=== PATIENT | female | born 1980 | race American Indian/Alaskan Native ===

== ENCOUNTER 2017-03-22 14:56 | Emergency (ER) | payer MEDICAID ==
[2017-03-22] MEDS ORDERED: TESSALON PERLES PO ONE (18:34)
[2017-03-22] MEDS ORDERED: NACL 0.9% 1000 ML 1,000 ML IV ONE (18:34)
[2017-03-22] MEDS ORDERED: PROVENTIL IH ONE (18:52)
[2017-03-22] MEDS ORDERED: ATROVENT IH ONE (18:52)
--- NOTE | 2017-03-22 18:52 | Emergency Department Report ---
Blank Doc - Documentation Documentation: Patient is a 37-year-old -Citizen Of [place] female with a past medical history asthma who states that she has had increased asthma symptoms for the past week. Patient has a cough is productive she states she's been using her inhaler with no relief. Brief physical exam patient does have a bronchitic cough with a very mild wheeze patient will receive a nebulized treatment Solu-Medrol and chest x-ray to rule out pneumonia
--- NOTE | 2017-03-22 19:12 | XRay Report ---
FINAL REPORT PROCEDURE: Chest. TECHNIQUE: PA and lateral views. HISTORY: Cough. COMPARISON: No prior studies are available for comparison. FINDINGS: The heart and mediastinum appear normal. The lungs are clear and well expanded. There are no pleural effusions. The soft tissues and regional skeleton are unremarkable. IMPRESSION: Normal study.
[2017-03-22 19:46] LABS: Basophils # (Auto) 0.1 K/mm3 (0.0-0.1); Basophils % (Auto) 1.6 % (0.0-1.8); Eosinophils % (Auto) 0.2 % (0.0-4.3); Hematocrit 39.4 % (30.3-42.9); Lymphocytes # (Auto) 0.4 K/mm3 (1.2-5.4); Mean Corpuscular HGB Conc 33 % (30-34); Mean Corpuscular Hemoglobin 30 pg (28-32); Mean Corpuscular Volume 92 fl (79-97); Monocytes # (Auto) 0.6 K/mm3 (0.0-0.8); Monocytes % (Auto) 12.4 % (0.0-7.3); Platelet Count 175 K/mm3 (140-440); Red Blood Count 4.28 M/mm3 (3.65-5.03)
[2017-03-22 19:59] LABS: BUN/Creatinine Ratio 9; Blood Urea Nitrogen 7 mg/dL (7-17); Calcium 8.6 mg/dL (8.4-10.2); Hemolysis Index 8
--- NOTE | 2017-03-22 21:46 | Emergency Department Report ---
Minor Respiratory - HPI Chief Complaint: Adult Asthma Stated Complaint: FLU LIKE SYMPTOMS Time Seen by Provider: 03/22/17 18:18 Duration: 2 Days Minor Respiratory: Yes Able to Tolerate Fluids, Yes Cough, Yes Fever, No Rhinorrhea, No Sore Throat, No Ear Pain, No Sick Contacts, No Hemoptysis, No Chest Pain, No Shortness of Breath Other History: 37-year-old female with a history of asthma who presents to ED complaining of cough and onset of fever for the past couple of days. Patient states cough has been intermittent, nonproductive. Patient states usually when she gets a bit sleep usually flares of asthma. Patient states she is drinking fluids okay and able within tolerate food appropriately. Patient states she has albuterol inhaler at home which she uses for rescue. She denies nausea/vomiting /shortness of breath/chest pain/dizziness or headaches ED Review of Systems ROS: Stated complaint: FLU LIKE SYMPTOMS Other details as noted in HPI Constitutional: fever. denies: chills Eyes: denies: eye pain, eye discharge, vision change ENT: denies: ear pain, throat pain Respiratory: cough. denies: shortness of breath, wheezing Cardiovascular: denies: chest pain, palpitations Endocrine: no symptoms reported Gastrointestinal: denies: abdominal pain, nausea, vomiting, diarrhea Genitourinary: denies: urgency, dysuria, frequency, discharge Musculoskeletal: denies: back pain, joint swelling, arthralgia Skin: denies: rash, lesions, pruritus Neurological: denies: headache, weakness, numbness, paresthesias, confusion Psychiatric: denies: anxiety, depression Hematological/Lymphatic: denies: easy bleeding, easy bruising ED Past Medical Hx - Past Medical History Hx Arthritis: Yes Hx Asthma: Yes Additional medical history: hyperhydrosis, genital herpes - Surgical History Additional Surgical History: corrected sweat glands - Social History Smoking Status: Current Every Day Smoker Substance Use Type: Alcohol, Marijuana - Medications Home Medications: Home Medications Medication Instructions Recorded Confirmed Last Taken Type Azithromycin [Zithromax Z-LAURA] 250 mg PO DAILY #6 tablet 07/19/13 Unknown Rx Guaifenesin/Codeine Phosphate 5 ml PO Q6H PRN #8 oz 07/19/13 Unknown Rx [Cheratussin AC Syrup] Amoxicillin [Trimox CAP] 1,000 mg PO Q8H #60 capsule 11/16/13 Unknown Rx Promethazine/Phenylephrine(Nf) 5 ml PO Q6H PRN #120 udc 11/16/13 Unknown Rx [Promethazine Vc 6.25/5 mg (Nf)] ALBUTEROL NEB's [Proventil 0.083% 2.5 mg IH DAILY PRN #1 pack 03/22/17 Unknown Rx NEBS] Albuterol Sulfate [Ventolin HFA] 2 puff IH Q4H PRN #1 hfa.aer.ad 03/22/17 Unknown Rx Compressor, For Nebulizer [Ebase 1 each MC DAILY #1 device 03/22/17 Unknown Rx Controller] Ibuprofen [Motrin 800 MG tab] 800 mg PO TID PRN #18 tablet 03/22/17 Unknown Rx Oseltamivir [Tamiflu] 75 mg PO BID #14 cap 03/22/17 Unknown Rx predniSONE [Deltasone] 3 tab PO QDAY #15 tab 03/22/17 Unknown Rx Minor Respiratory Exam - Exam General: Vital signs noted. No distress. Alert and acting appropriately. HEENT: Yes Moist Mucous Membranes, No Pharyngeal Erythema, No Pharyngeal Exudates, No Rhinorrhea, No Conjuctival Injection, No Frontal Tenderness, No Maxillary Tenderness Ear: Neither TM Bulge, Neither TM Erythema, Neither EAC Pain, Neither EAC Discharge Neck: Yes Supple, No Adenopathy Lungs: Yes Good Air Exchange, No Wheezes, No Ronchi, No Stridor, No Cough, No Labored Respirations, No Retractions, No Use of Accessory Muscles, No Other Abnormal Lung Sounds Heart: Yes Regular, No Murmur Abdomen: Yes Normal Bowel Sounds, No Tenderness, No Peritoneal Signs Skin: No Rash, No Edema Neurologic: Alert and oriented, no deficits. Musculoskeletal: Unremarkable. ED Course Vital Signs 03/22/17 15:28 Temperature 101.1 F H Pulse Rate 108 H Respiratory 16 Rate Blood Pressure 101/58 O2 Sat by Pulse 98 Oximetry ED Medical Decision Making - Lab Data Result diagrams: 03/22/17 19:30 03/22/17 19:30 - Radiology Data Radiology results: report reviewed, image reviewed FINAL REPORT PROCEDURE: Chest. TECHNIQUE: PA and lateral views. HISTORY: Cough. COMPARISON: No prior studies are available for comparison. FINDINGS: The heart and mediastinum appear normal. The lungs are clear and well expanded. There are no pleural effusions. The soft tissues and regional skeleton are unremarkable. IMPRESSION: Normal study. Transcribed By: MRM Dictated By: ORVILLE SCHULTZ MD Electronically Authenticated By: ORVILLE SCHULTZ MD Signed Date/Time: 03/22/17 6481 - Medical Decision Making 7-year-old male presents with flulike symptoms. Fever resolved no fever during the ED stay. Discussed with mother symptomatic relief with [id number] medications. Discussed continue Tylenol and Motrin as needed for fever and pain. Discussed increase fluids and diet intake. Discussed rest much needed. Discussed daily vitamin C for immune booster. Discussed follow-up with trash collector in 3-5 days. Patient's mother verbally states she understands and will comply the following instructions and follow-up Vital signs stable. Patient is in no acute distress Critical care attestation.: If time is entered above; I have spent that time in minutes in the direct care of this critically ill patient, excluding procedure time. ED Disposition Clinical Impression: Viral syndrome Asthma exacerbation Qualifiers: Asthma severity: mild Asthma persistence: intermittent Qualified Code(s): J45.21 - Mild intermittent asthma with (acute) exacerbation Disposition: DC-01 TO HOME OR SELFCARE Is pt being admited?: No Does the pt Need Aspirin: No Condition: Stable Instructions: Asthma (ED), Upper Respiratory Infection (ED), Viral Syndrome (ED ), Cold Symptoms (ED) Additional Instructions: Make sure to follow up with the primary care physician as discussed. Take all your medications as you've been prescribed. If you have any worsening symptoms or develop new symptoms please return to ED immediately. Prescriptions: ALBUTEROL NEB's [Proventil 0.083% NEBS] 2.5 mg IH DAILY PRN #1 pack PRN Reason: Wheezing Albuterol Sulfate [Ventolin HFA] 2 puff IH Q4H PRN #1 hfa.aer.ad PRN Reason: Shortness Of Breath Compressor, For Nebulizer [Ebase Controller] 1 each MC DAILY #1 device Ibuprofen [Motrin 800 MG tab] 800 mg PO TID PRN #18 tablet PRN Reason: Pain Oseltamivir [Tamiflu] 75 mg PO BID #14 cap predniSONE [Deltasone] 3 tab PO QDAY #15 tab Referrals: PRIMARY CAREMD [Primary Care Provider] - 3-5 Days CHANTEL ARCHULETA MD [Referring] - 3-5 Days [facility] [Outside] - 3-5 Days [facility] [Outside] - 3-5 Days [facility] [Outside] - 3-5 Days Forms: Work/School Release Form(ED) Time of Disposition: 21:46
[2017-03-22] MEDS ORDERED: TYLENOL PO ONE (22:09)
[2017-03-23 05:24] VITALS: BP 112/58
== END 2017-03-22 23:35 | disposition home or self-care (01) ==
LOC: ED 14:56
DX: J45.901 Unspecified asthma with (acute) exacerbation (principal); B34.9 Viral infection, unspecified; M19.90 Unspecified osteoarthritis, unspecified site; F17.200 Nicotine dependence, unspecified, uncomplicated; F12.10 Cannabis abuse, uncomplicated
CPT/HCPCS: 36415; 71046; 80048; 85025; 96361; 96374; 99284; J2930; J7030

== ENCOUNTER 2018-07-29 13:57 | Emergency (ER) | payer MEDICAID ==
[2018-07-29 14:20] VITALS: BP 139/70
--- NOTE | 2018-07-29 14:24 | Emergency Department Report ---
ED ENT HPI - General Chief complaint: Dental/Oral Stated complaint: TOOTHACHE Time Seen by Provider: 07/29/18 14:18 Source: patient Mode of arrival: Ambulatory Limitations: No Limitations - History of Present Illness MD complaint: tooth pain -: Sudden Location: tooth # Severity: mild, moderate Quality: aching, dull Consistency: constant Improves with: none Worsens with: eating (and palpation) Context- Dental: history of dental caries Associated Symptoms: gum swelling, toothache. denies: cough, pain with swallowing, sore throat, tinnitus, discharge from ear, rhinorrhea - Related Data Previous Rx's Medication Instructions Recorded Last Taken Type Azithromycin [Zithromax Z-LAURA] 250 mg PO DAILY #6 tablet 07/19/13 Unknown Rx Guaifenesin/Codeine Phosphate 5 ml PO Q6H PRN #8 oz 07/19/13 Unknown Rx [Cheratussin AC Syrup] Amoxicillin [Trimox CAP] 1,000 mg PO Q8H #60 capsule 11/16/13 Unknown Rx Promethazine/Phenylephrine(Nf) 5 ml PO Q6H PRN #120 udc 11/16/13 Unknown Rx [Promethazine Vc 6.25/5 mg (Nf)] ALBUTEROL NEB's [Proventil 0.083% 2.5 mg IH DAILY PRN #1 pack 03/22/17 Unknown Rx NEBS] Albuterol Sulfate [Ventolin HFA] 2 puff IH Q4H PRN #1 hfa.aer.ad 03/22/17 Unknown Rx Compressor, For Nebulizer [Ebase 1 each MC DAILY #1 device 03/22/17 Unknown Rx Controller] Ibuprofen [Motrin 800 MG tab] 800 mg PO TID PRN #18 tablet 03/22/17 Unknown Rx Oseltamivir [Tamiflu] 75 mg PO BID #14 cap 03/22/17 Unknown Rx predniSONE [Deltasone] 3 tab PO QDAY #15 tab 03/22/17 Unknown Rx Amoxicillin [Amoxicillin TAB] 875 mg PO BID #20 tablet 07/29/18 Unknown Rx Chlorhexidine Mouthwash [Peridex] 15 ml MM BID #473 bottle 07/29/18 Unknown Rx Lidocaine Viscous 2% 15 ml MM Q4H #240 udc 07/29/18 Unknown Rx traMADol [Ultram] 50 mg PO Q6HR PRN #14 tablet 07/29/18 Unknown Rx Allergies Allergy/AdvReac Type Severity Reaction Status Date / Time No Known Allergies Allergy Verified 07/29/18 13:58 ED Dental HPI - General Chief complaint: Dental/Oral Stated complaint: TOOTHACHE Time Seen by Provider: 07/29/18 14:18 Source: patient Mode of arrival: Ambulatory Limitations: No Limitations - Related Data Previous Rx's Medication Instructions Recorded Last Taken Type Azithromycin [Zithromax Z-LAURA] 250 mg PO DAILY #6 tablet 07/19/13 Unknown Rx Guaifenesin/Codeine Phosphate 5 ml PO Q6H PRN #8 oz 07/19/13 Unknown Rx [Cheratussin AC Syrup] Amoxicillin [Trimox CAP] 1,000 mg PO Q8H #60 capsule 11/16/13 Unknown Rx Promethazine/Phenylephrine(Nf) 5 ml PO Q6H PRN #120 udc 11/16/13 Unknown Rx [Promethazine Vc 6.25/5 mg (Nf)] ALBUTEROL NEB's [Proventil 0.083% 2.5 mg IH DAILY PRN #1 pack 03/22/17 Unknown Rx NEBS] Albuterol Sulfate [Ventolin HFA] 2 puff IH Q4H PRN #1 hfa.aer.ad 03/22/17 Unknown Rx Compressor, For Nebulizer [Ebase 1 each MC DAILY #1 device 03/22/17 Unknown Rx Controller] Ibuprofen [Motrin 800 MG tab] 800 mg PO TID PRN #18 tablet 03/22/17 Unknown Rx Oseltamivir [Tamiflu] 75 mg PO BID #14 cap 03/22/17 Unknown Rx predniSONE [Deltasone] 3 tab PO QDAY #15 tab 03/22/17 Unknown Rx Amoxicillin [Amoxicillin TAB] 875 mg PO BID #20 tablet 07/29/18 Unknown Rx Chlorhexidine Mouthwash [Peridex] 15 ml MM BID #473 bottle 07/29/18 Unknown Rx Lidocaine Viscous 2% 15 ml MM Q4H #240 udc 07/29/18 Unknown Rx traMADol [Ultram] 50 mg PO Q6HR PRN #14 tablet 07/29/18 Unknown Rx Allergies Allergy/AdvReac Type Severity Reaction Status Date / Time No Known Allergies Allergy Verified 07/29/18 13:58 ED Review of Systems ROS: Stated complaint: TOOTHACHE Other details as noted in HPI Constitutional: denies: chills, fever Eyes: denies: eye pain, eye discharge, vision change ENT: dental pain. denies: ear pain, throat pain Respiratory: denies: cough, shortness of breath, wheezing Cardiovascular: denies: chest pain, palpitations Endocrine: no symptoms reported Gastrointestinal: denies: abdominal pain, nausea, diarrhea Genitourinary: denies: urgency, dysuria, discharge Musculoskeletal: denies: back pain, joint swelling, arthralgia Skin: denies: rash, lesions Neurological: denies: headache, weakness, paresthesias Psychiatric: denies: anxiety, depression Hematological/Lymphatic: denies: easy bleeding, easy bruising ED Past Medical Hx - Past Medical History Hx Arthritis: Yes Hx Asthma: Yes Additional medical history: hyperhydrosis, genital herpes - Surgical History Additional Surgical History: corrected sweat glands - Social History Smoking Status: Current Every Day Smoker Substance Use Type: Alcohol - Medications Home Medications: Home Medications Medication Instructions Recorded Confirmed Last Taken Type Azithromycin [Zithromax Z-LAURA] 250 mg PO DAILY #6 tablet 07/19/13 Unknown Rx Guaifenesin/Codeine Phosphate 5 ml PO Q6H PRN #8 oz 07/19/13 Unknown Rx [Cheratussin AC Syrup] Amoxicillin [Trimox CAP] 1,000 mg PO Q8H #60 capsule 11/16/13 Unknown Rx Promethazine/Phenylephrine(Nf) 5 ml PO Q6H PRN #120 udc 11/16/13 Unknown Rx [Promethazine Vc 6.25/5 mg (Nf)] ALBUTEROL NEB's [Proventil 0.083% 2.5 mg IH DAILY PRN #1 pack 03/22/17 Unknown Rx NEBS] Albuterol Sulfate [Ventolin HFA] 2 puff IH Q4H PRN #1 hfa.aer.ad 03/22/17 Unknown Rx Compressor, For Nebulizer [Ebase 1 each MC DAILY #1 device 03/22/17 Unknown Rx Controller] Ibuprofen [Motrin 800 MG tab] 800 mg PO TID PRN #18 tablet 03/22/17 Unknown Rx Oseltamivir [Tamiflu] 75 mg PO BID #14 cap 03/22/17 Unknown Rx predniSONE [Deltasone] 3 tab PO QDAY #15 tab 02/06/18 Unknown Rx Amoxicillin [Amoxicillin TAB] 875 mg PO BID #20 tablet 07/29/18 Unknown Rx Chlorhexidine Mouthwash [Peridex] 15 ml MM BID #473 bottle 07/29/18 Unknown Rx Lidocaine Viscous 2% 15 ml MM Q4H #240 udc 07/29/18 Unknown Rx traMADol [Ultram] 50 mg PO Q6HR PRN #14 tablet 07/29/18 Unknown Rx ED Physical Exam - General Limitations: No Limitations General appearance: alert, in no apparent distress - Head Head exam: Present: atraumatic, normocephalic - Eye Eye exam: Present: normal appearance, PERRL, EOMI Pupils: Present: normal accommodation - ENT ENT exam: Present: mucous membranes moist, other (dental tenderness at tooth #18 and redness noted with few dental caries. airway patent) - Neck Neck exam: Present: normal inspection, full ROM. Absent: lymphadenopathy, thyromegaly - Respiratory Respiratory exam: Present: normal lung sounds bilaterally. Absent: respiratory distress, wheezes, rales, rhonchi - Cardiovascular Cardiovascular Exam: Present: regular rate, normal rhythm. Absent: systolic murmur, diastolic murmur, rubs, gallop - GI/Abdominal GI/Abdominal exam: Present: soft, normal bowel sounds - Extremities Exam Extremities exam: Present: normal inspection - Back Exam Back exam: Present: normal inspection - Neurological Exam Neurological exam: Present: alert, oriented X3 - Psychiatric Psychiatric exam: Present: normal affect, normal mood - Skin Skin exam: Present: warm, dry, intact, normal color. Absent: rash ED Course Vital Signs 07/29/18 14:18 Temperature 98.6 F Pulse Rate 72 Respiratory 18 Rate Blood Pressure 139/70 O2 Sat by Pulse 99 Oximetry Critical care attestation.: If time is entered above; I have spent that time in minutes in the direct care of this critically ill patient, excluding procedure time. ED Disposition Clinical Impression: Dentalgia Disposition: DC-01 TO HOME OR SELFCARE Is pt being admited?: No Does the pt Need Aspirin: No Condition: Stable Prescriptions: Amoxicillin [Amoxicillin TAB] 875 mg PO BID #20 tablet Lidocaine Viscous 2% 15 ml MM Q4H #240 udc Chlorhexidine Mouthwash [Peridex] 15 ml MM BID #473 bottle traMADol [Ultram] 50 mg PO Q6HR PRN #14 tablet PRN Reason: Pain Referrals: [facility] [Outside] - 3-5 Days
== END 2018-07-29 14:48 | disposition home or self-care (01) ==
LOC: ED 13:57
DX: K08.89 Other specified disorders of teeth and supporting structures (principal); M19.90 Unspecified osteoarthritis, unspecified site; J45.909 Unspecified asthma, uncomplicated; F17.200 Nicotine dependence, unspecified, uncomplicated
CPT/HCPCS: 99282

== ENCOUNTER 2018-07-31 22:12 | Emergency (ER) | payer MEDICAID ==
[2018-07-31] MEDS ORDERED: DUONEB *Not for PRN Use IH ONE (22:22)
[2018-07-31 23:52] VITALS: BP 148/84
[2018-08-01 00:29] LABS: Basophils % (Auto) 0.5 % (0.0-1.8); Eosinophils % (Auto) 0.4 % (0.0-4.3); Hematocrit 37.4 % (30.3-42.9); Hemoglobin 12.9 gm/dl (10.1-14.3); Lymphocytes % (Auto) 10.5 % (13.4-35.0); Mean Corpuscular HGB Conc 35 % (30-34); Mean Corpuscular Volume 89 fl (79-97); Monocytes # (Auto) 0.5 K/mm3 (0.0-0.8); Monocytes % (Auto) 5.8 % (0.0-7.3); Platelet Count 232 K/mm3 (140-440); Red Blood Count 4.18 M/mm3 (3.65-5.03); Red Cell Distribution Width 13.8 % (13.2-15.2)
[2018-08-01 00:52] LABS: Alanine Aminotransferase 15 units/L (7-56); Albumin 3.8 g/dL (3.9-5); BUN/Creatinine Ratio 14; Blood Urea Nitrogen 14 mg/dL (7-17); Hemolysis Index 25
[2018-08-01 01:28] LABS: HCG Qualitative,Urine Negative (Negative)
[2018-08-01 01:47] LABS: Bilirubin,Urine NEG (Negative); Blood,Urine LG (Negative); Color,Urine Yellow (Yellow); Mucus,Urine FEW /HPF; Protein,Urine <15 mg/dL mg/dL (Negative); Urobilinogen,Urine < 2.0 mg/dL (<2.0)
--- NOTE | 2018-08-01 02:00 | XRay Report ---
PROCEDURE: XR CHEST ROUTINE 2V TECHNIQUE: PA and lateral chest radiographs were obtained. HISTORY: Chest pain DANISH COMPARISONS: None. FINDINGS: Heart: Normal. Mediastinum/Vessels: Normal. Lungs/Pleural space: Normal. Bony thorax: No acute osseous abnormality. IMPRESSION: Normal examination. This document is electronically signed by Sera Talley DO., August 01 2018 01:58:52 AM ET
[2018-08-01] MEDS ORDERED: DELTASONE PO ONE (02:24)
[2018-08-01] MEDS ORDERED: DUONEB *Not for PRN Use IH ONE (02:24)
[2018-08-01] MEDS ORDERED: DELTASONE ONE (02:24)
[2018-08-01] MEDS ORDERED: PROVENTIL IH ONE (02:24)
--- NOTE | 2018-08-01 02:53 | Emergency Department Report ---
ED Shortness of Breath HPI - General Chief Complaint: Dyspnea/Respdistress Stated Complaint: ASTHMA COUGH Source: patient Mode of arrival: Ambulatory Limitations: No Limitations - History of Present Illness Initial Comments: This is a 38-year-old female that presents to the emergency room with a cough and dyspnea since this morning. Past medical history of asthma, arthritis, and genital herpes. Patient states she took several breathing treatments at home along with rescue inhaler with no improvement in symptoms. She also reports chills. Denies fever, chest pain, wheezing, or coryza. MD Complaint: shortness of breath Onset/Timin -: days(s) Severity: mild Pain Scale: 0 Improves With: nothing Worsens With: exertion Known History Of: asthma Context: occured during exertion Associated Symptoms: cough Treatments Prior to Arrival: bronchodilator - Related Data Home Oxygen Therapy: No Previous Rx's Medication Instructions Recorded Last Taken Type Azithromycin [Zithromax Z-LAURA] 250 mg PO DAILY #6 tablet 07/19/13 Unknown Rx Guaifenesin/Codeine Phosphate 5 ml PO Q6H PRN #8 oz 07/19/13 Unknown Rx [Cheratussin AC Syrup] Amoxicillin [Trimox CAP] 1,000 mg PO Q8H #60 capsule 11/16/13 Unknown Rx Promethazine/Phenylephrine(Nf) 5 ml PO Q6H PRN #120 udc 11/16/13 Unknown Rx [Promethazine Vc 6.25/5 mg (Nf)] ALBUTEROL NEB's [Proventil 0.083% 2.5 mg IH DAILY PRN #1 pack 03/22/17 Unknown Rx NEBS] Albuterol Sulfate [Ventolin HFA] 2 puff IH Q4H PRN #1 hfa.aer.ad 03/22/17 Unknown Rx Compressor, For Nebulizer [Ebase 1 each MC DAILY #1 device 03/22/17 Unknown Rx Controller] Ibuprofen [Motrin 800 MG tab] 800 mg PO TID PRN #18 tablet 03/22/17 Unknown Rx Oseltamivir [Tamiflu] 75 mg PO BID #14 cap 03/22/17 Unknown Rx predniSONE [Deltasone] 3 tab PO QDAY #15 tab 03/22/17 Unknown Rx Amoxicillin [Amoxicillin TAB] 875 mg PO BID #20 tablet 07/29/18 Unknown Rx Chlorhexidine Mouthwash [Peridex] 15 ml MM BID #473 bottle 07/29/18 Unknown Rx Lidocaine Viscous 2% 15 ml MM Q4H #240 udc 07/29/18 Unknown Rx traMADol [Ultram] 50 mg PO Q6HR PRN #14 tablet 07/29/18 Unknown Rx ALBUTEROL Inhaler (OR & NICU) 2 puff IH QID PRN #1 inhalation 08/01/18 Unknown Rx [ProAir HFA Inhaler] Benzonatate [Tessalon Perles] 100 mg PO Q8HR PRN #30 capsule 08/01/18 Unknown Rx Prednisone [predniSONE 10 mg 10 mg PO .TAPER #1 tab.ds.pk 08/01/18 Unknown Rx (6-Day Pack, 21 Tabs)] Allergies Allergy/AdvReac Type Severity Reaction Status Date / Time No Known Allergies Allergy Verified 07/29/18 13:58 ED Review of Systems ROS: Stated complaint: ASTHMA COUGH Other details as noted in HPI Constitutional: denies: chills, fever ENT: denies: ear pain, throat pain Respiratory: cough, shortness of breath, SOB with exertion. denies: wheezing Cardiovascular: denies: chest pain, palpitations Gastrointestinal: denies: abdominal pain, nausea, diarrhea Skin: denies: rash, lesions Neurological: denies: headache, weakness, paresthesias Psychiatric: denies: anxiety, depression ED Past Medical Hx - Past Medical History Previous Medical History?: Yes Hx Arthritis: Yes Hx Asthma: Yes Additional medical history: hyperhydrosis, genital herpes - Surgical History Past Surgical History?: Yes Additional Surgical History: corrected sweat glands - Social History Smoking Status: Current Every Day Smoker Substance Use Type: Alcohol - Medications Home Medications: Home Medications Medication Instructions Recorded Confirmed Last Taken Type Azithromycin [Zithromax Z-LAURA] 250 mg PO DAILY #6 tablet 07/19/13 Unknown Rx Guaifenesin/Codeine Phosphate 5 ml PO Q6H PRN #8 oz 07/19/13 Unknown Rx [Cheratussin AC Syrup] Amoxicillin [Trimox CAP] 1,000 mg PO Q8H #60 capsule 11/16/13 Unknown Rx Promethazine/Phenylephrine(Nf) 5 ml PO Q6H PRN #120 udc 11/16/13 Unknown Rx [Promethazine Vc 6.25/5 mg (Nf)] ALBUTEROL NEB's [Proventil 0.083% 2.5 mg IH DAILY PRN #1 pack 03/22/17 Unknown Rx NEBS] Albuterol Sulfate [Ventolin HFA] 2 puff IH Q4H PRN #1 hfa.aer.ad 03/22/17 Unknown Rx Compressor, For Nebulizer [Ebase 1 each MC DAILY #1 device 03/22/17 Unknown Rx Controller] Ibuprofen [Motrin 800 MG tab] 800 mg PO TID PRN #18 tablet 03/22/17 Unknown Rx Oseltamivir [Tamiflu] 75 mg PO BID #14 cap 03/22/17 Unknown Rx predniSONE [Deltasone] 3 tab PO QDAY #15 tab 03/22/17 Unknown Rx Amoxicillin [Amoxicillin TAB] 875 mg PO BID #20 tablet 07/29/18 Unknown Rx Chlorhexidine Mouthwash [Peridex] 15 ml MM BID #473 bottle 07/29/18 Unknown Rx Lidocaine Viscous 2% 15 ml MM Q4H #240 udc 07/29/18 Unknown Rx traMADol [Ultram] 50 mg PO Q6HR PRN #14 tablet 07/29/18 Unknown Rx ALBUTEROL Inhaler (OR & NICU) 2 puff IH QID PRN #1 inhalation 08/01/18 Unknown Rx [ProAir HFA Inhaler] Benzonatate [Tessalon Perles] 100 mg PO Q8HR PRN #30 capsule 08/01/18 Unknown R x Prednisone [predniSONE 10 mg 10 mg PO .TAPER #1 tab.ds.pk 08/01/18 Unknown Rx (6-Day Pack, 21 Tabs)] ED Physical Exam - General Limitations: No Limitations General appearance: alert, in no apparent distress, obese - ENT ENT exam: Present: mucous membranes moist - Respiratory Respiratory exam: Present: normal lung sounds bilaterally. Absent: respiratory distress - Cardiovascular Cardiovascular Exam: Present: regular rate, normal rhythm. Absent: systolic murmur, diastolic murmur, rubs, gallop - GI/Abdominal GI/Abdominal exam: Present: soft, normal bowel sounds - Neurological Exam Neurological exam: Present: alert, oriented X3 - Psychiatric Psychiatric exam: Present: normal affect, normal mood - Skin Skin exam: Present: warm, dry, intact, normal color. Absent: rash ED Course Vital Signs 07/31/18 07/31/18 07/31/18 22:15 22:19 22:25 Temperature 98.5 F 98.5 F Pulse Rate 98 H 102 H Pulse Rate [ 90 Anterior Bilateral Throughout] Respiratory 18 22 Rate Respiratory 24 Rate [Anterior Bilateral Throughout] Blood Pressure 150/99 150/99 O2 Sat by Pulse 100 100 Oximetry 07/31/18 07/31/18 22:35 23:51 Temperature Pulse Rate 86 Pulse Rate [ 88 Anterior Bilateral Throughout] Respiratory 22 Rate Respiratory 18 Rate [Anterior Bilateral Throughout] Blood Pressure 148/84 O2 Sat by Pulse 100 Oximetry ED Medical Decision Making - Lab Data Result diagrams: 08/01/18 00:11 08/01/18 00:11 Lab Results 08/01/18 08/01/18 08/01/18 Range/Units 00:11 00:11 00:54 WBC 9.2 (4.5-11.0) K/mm3 RBC 4.18 (3.65-5.03) M/mm3 Hgb 12.9 (10.1-14.3) gm/dl Hct 37.4 (30.3-42.9) % MCV 89 (79-97) fl MCH 31 (28-32) pg MCHC 35 H (30-34) % RDW 13.8 (13.2-15.2) % Plt Count 232 (140-440) K/mm3 Lymph % (Auto) 10.5 L (13.4-35.0) % [place] % (Auto) 5.8 (0.0-7.3) % Eos % (Auto) 0.4 (0.0-4.3) % Baso % (Auto) 0.5 (0.0-1.8) % Lymph # 1.0 L (1.2-5.4) K/mm3 Ford # 0.5 (0.0-0.8) K/mm3 Eos # 0.0 (0.0-0.4) K/mm3 Baso # 0.0 (0.0-0.1) K/mm3 Seg Neutrophils % 82.8 H (40.0-70.0) % Seg Neutrophils # 7.6 (1.8-7.7) K/mm3 Sodium 138 (137-145) mmol/L Potassium 3.3 L (3.6-5.0) mmol/L Chloride 99.9 (98-107) mmol/L Carbon Dioxide 23 (22-30) mmol/L Anion Gap 18 mmol/L BUN 14 (7-17) mg/dL Creatinine 1.0 (0.7-1.2) mg/dL Estimated GFR > 60 ml/min BUN/Creatinine Ratio 14 % Glucose 102 H (65-100) mg/dL Calcium 9.0 (8.4-10.2) mg/dL Total Bilirubin 0.20 (0.1-1.2) mg/dL AST 17 (5-40) units/L ALT 15 (7-56) units/L Alkaline Phosphatase 75 (35-129) units/L Total Protein 6.6 (6.3-8.2) g/dL Albumin 3.8 L (3.9-5) g/dL Albumin/Globulin Ratio 1.4 % Urine Color Yellow (Yellow) Urine Turbidity Clear (Clear) Urine pH 6.0 (5.0-7.0) Ur Specific [place] 1.026 (1.003-1.030) Urine Protein <15 mg/dl (Negative) mg/dL Urine Glucose (UA) Neg (Negative) mg/dL Urine Ketones Neg (Negative) mg/dL Urine Blood Lg (Negative) Urine Nitrite Neg (Negative) Ur Reducing Substances Not Reportable Urine Bilirubin Neg (Negative) Urine Ictotest Not Reportable Urine Urobilinogen < 2.0 (<2.0) mg/dL Ur Leukocyte Esterase Sm (Negative) Urine WBC (Auto) 2.0 (0.0-6.0) /HPF Urine RBC (Auto) 4.0 (0.0-6.0) /HPF U Epithel Cells (Auto) 3.0 (0-13.0) /HPF Urine Mucus Few /HPF Urine HCG, Qual Negative (Negative) - Radiology Data Radiology results: report reviewed PROCEDURE: XR CHEST ROUTINE 2V TECHNIQUE: PA and lateral chest radiographs were obtained. HISTORY: Chest pain DANISH COMPARISONS: None. FINDINGS: Heart: Normal. Mediastinum/Vessels: Normal. Lungs/Pleural space: Normal. Bony thorax: No acute osseous abnormality. IMPRESSION: Normal examination. - Medical Decision Making Patient examined by this provider. History of Asthma, arthritis, genital herpes. Patient examined by me and in slight distress. Vitals stable. Given duoneb treatment twice and prednisone 60 mg po once in ER. Wheezes resolved and patient reports feeling better. Asthma exacerbation, Start albuterol, prednisone taper, and benzonatate. Discharged home stable. Return to work tomorrow. Follow-up with your primary care doctor. Critical care attestation.: If time is entered above; I have spent that time in minutes in the direct care of this critically ill patient, excluding procedure time. ED Disposition Clinical Impression: Cough Dyspnea Qualifiers: Dyspnea type: dyspnea on exertion Qualified Code(s): R06.09 - Other forms of dyspnea Asthma exacerbation Qualifiers: Asthma severity: mild Asthma persistence: intermittent Qualified Code(s): J45.21 - Mild intermittent asthma with (acute) exacerbation Disposition: TO HOME OR SELFCARE Is pt being admited?: No Does the pt Need Aspirin: No Condition: Stable Instructions: Asthma (ED), Reactive Airways Disease (ED) Additional Instructions: It is important to use inhaler or have active albuterol inhaler and avoiding asthma triggers. Complete full course of prednisone steroids as prescribed. Follow up with Primary Care Provider in 24-72 hours. Prescriptions: Prednisone [predniSONE 10 mg (6-Day Pack, 21 Tabs)] 10 mg PO .TAPER #1 tab.ds.pk ALBUTEROL Inhaler (OR & NICU) [ProAir HFA Inhaler] 2 puff IH QID PRN #1 inhalation PRN Reason: Shortness Of Breath Benzonatate [Tessalon Perles] 100 mg PO Q8HR PRN #30 capsule PRN Reason: Cough Referrals: [facility] [Outside] - 3-5 Days [facility] [Outside] - 3-5 Days [facility] [Provider Group] - 3-5 Days Forms: Accompanied Note Time of Disposition: 03:30
[2018-08-01] MEDS ORDERED: K-DUR PO ONE (03:24)
== END 2018-08-01 03:50 | disposition home or self-care (01) ==
LOC: ED 22:12
DX: J45.21 Mild intermittent asthma with (acute) exacerbation (principal)
CPT/HCPCS: 36415; 71046; 80053; 81001; 81025; 85025; 94640; 99284; J7512